=== PATIENT | female | born 1960 | race Caucasian/White ===

== ENCOUNTER 2022-04-17 07:12 | Day surgery (SDC) | payer OTHER ==
[2022-04-13 16:28] VITALS: BMI 27.8
[2022-04-17] MEDS ORDERED: PROPOFOL 20 ML ONE ×4 (09:01)
[2022-04-17 10:34] VITALS: TEMP 97.5
[2022-04-17 10:54] VITALS: BP 104/61; PULSE 76
== END 2022-04-17 11:28 | disposition home or self-care (01) ==
LOC: FASU-ENDO 07:12
PROVIDERS: ATTEND Internal Medicine Gastroenterology
PROC: 0DJD8ZZ Inspection of Lower Intestinal Tract, Via Natural or Artificial Opening Endoscopic (ICD-10-PCS; principal; 2022-04-17 10:07)
DX: F12.11 Cannabis abuse, in remission (principal); K64.1 Second degree hemorrhoids; K64.8 Other hemorrhoids